=== PATIENT | female | born 1965 | race Caucasian/White ===

== ENCOUNTER 2025-08-03 23:32 | Emergency (ER) | payer OTHER ==
[2025-08-03] MEDS ORDERED: Naloxone 0.4 MG/ML SDV IVPUSH PRN (23:55)
[2025-08-04 00:42] VITALS: BP 142/88; PULSE 87
[2025-08-04] MEDS: Orphenadrine 60 MG/2 ML Inj IV ONE (00:49)
[2025-08-04] MEDS: Orphenadrine 60 MG/2 ML Inj IM ONE (00:54)
== END 2025-08-04 01:22 ==
LOC: LL.ED 23:32
DX: S72.142A Displaced intertrochanteric fracture of left femur, initial encounter for closed fracture (principal); Z88.1 Allergy status to other antibiotic agents; Z88.0 Allergy status to penicillin; Z88.2 Allergy status to sulfonamides; W18.39XA Other fall on same level, initial encounter; Y93.89 Activity, other specified
CPT/HCPCS: 96374; 96375; 99284-25; A9270-GY; J1171; J2360